=== PATIENT | female | born 1950 | race Caucasian/White ===

== ENCOUNTER 2018-06-26 06:18 | Day surgery (SDC) | payer MEDICARE, MEDICAID ==
[~2018-06-26] VITALS: Ht 160 cm; Wt 60.8 kg
[2018-06-26] VITALS (15 sets, daily range): BP systolic 98–159; BP diastolic 43–85
[~2018-06-26 06:18] MED LIST: ASPI81TA46 PO; CALC-499 PO; CHOL100046 PO; CLOP75TA15 PO; DILT180C66 PO; ESOM40CA PO; EVOL140S SQ; FENO135C PO; HYDR25TA4 PO; LANTUS SUBCUT; LIDOcaine 1%/PF 5ML 10 MG/ML VIAL SQ ONE; METO50TA7 PO; OMEG1CAP46 PO; ROSU40TA PO; TRAN2TAB2 PO; VICTOZA SQ; [UNRECOGNIZED DRUG - CODE] TL
[2018-06-26] MEDS ORDERED: oxyCODONE IR 5mg (immed. release) tablet PO PRN (06:40)
[2018-06-26] MEDS ORDERED: normal saline 1000ml 1,000 ML IV PRN (06:40)
[2018-06-26] MEDS ORDERED: INSU100V13 SQ (07:14)
[2018-06-26 07:27] LABS: BASOPHILS # (AUTO) 0.1 X10'3 (0-0.2); BASOPHILS % (AUTO) 0.8 % (0-1); EOSINOPHILS # (AUTO) 0.2 X10'3 (0-0.9); EOSINOPHILS % (AUTO) 1.7 % (0-6); HEMATOCRIT 44.2 % (35.0-45.0); HEMOGLOBIN 14.9 g/dl (12.0-16.0); LYMPHOCYTES # (AUTO) 2.5 X10'3 (1.1-4.8); LYMPHOCYTES % (AUTO) 24.9 % (21-51); MEAN CORPUSCULAR HEMOGLOBIN 30.2 PG (27.0-31.0); MEAN CORPUSCULAR HGB CONC 33.8 % (33.0-36.5); MEAN CORPUSCULAR VOLUME 89.3 FL (78-98); MEAN PLATELET VOLUME 9.8 FL (7.4-10.4); MONOCYTES # (AUTO) 0.7 X10'3 (0-0.9); NEUTROPHILS # (AUTO) 6.6 X10'3 (1.8-7.7); NEUTROPHILS % (AUTO) 65.6 % (42-75); PLATELET COUNT 265 X10'3 (140-440); RED BLOOD COUNT 4.94 X10'6 (4.20-5.60); RED CELL DISTRIBUTION WIDTH 14.5 % (11.5-14.5); WHITE BLOOD COUNT 10.1 X10'3 (4.5-11.0)
[2018-06-26 07:34] LABS: ALBUMIN 4.6 G/DL (3.4-5.0); ANION GAP 14 (8-16); BLOOD UREA NITROGEN 26 MG/DL (7-18); BUN/CREATININE RATIO 22.8 (6.6-38.0); CHLORIDE 100 MMOL/L (99-107); CREATININE 1.14 MG/DL (0.40-0.90); GLUCOSE 299 MG/DL (70-104); POTASSIUM 4.3 MMOL/L (3.5-5.1); PROTHROMBIN TIME 10.7 SECONDS (9.0-12.0); SODIUM 138 MMOL/L (135-145); TOTAL CARBON DIOXIDE 24.3 MMOL/L (24-32); eGFR 47 ML/MIN
[2018-06-26] MEDS ORDERED: MIDAZolam 1mg/ml 10ml vial IV ONE (07:55)
[2018-06-26] MEDS ORDERED: fentaNYL/PF 50MCG/1 ML 2ML syringe IV ONE (07:55)
[2018-06-26] MEDS ORDERED: normal saline 1000ml 1,000 ML IV SCH (08:14)
== END 2018-06-26 12:15 | disposition home or self-care (01) ==
LOC: SSTAY O 06:18
PROVIDERS: ATTEND Radiology Diagnostic Radiology
DX: R74.8 Abnormal levels of other serum enzymes (principal); E11.22 Type 2 diabetes mellitus with diabetic chronic kidney disease; I12.9 Hypertensive chronic kidney disease with stage 1 through stage 4 chronic kidney disease, or unspecified chronic kidney disease; N18.9 Chronic kidney disease, unspecified; I25.10 Atherosclerotic heart disease of native coronary artery without angina pectoris; E78.00 Pure hypercholesterolemia, unspecified; I49.8 Other specified cardiac arrhythmias; I65.23 Occlusion and stenosis of bilateral carotid arteries; M81.0 Age-related osteoporosis without current pathological fracture; Z87.891 Personal history of nicotine dependence; Z90.710 Acquired absence of both cervix and uterus; Z85.09 Personal history of malignant neoplasm of other digestive organs; Z90.722 Acquired absence of ovaries, bilateral; Z86.73 Personal history of transient ischemic attack (TIA), and cerebral infarction without residual deficits; Z88.2 Allergy status to sulfonamides; Z88.5 Allergy status to narcotic agent; Z88.1 Allergy status to other antibiotic agents; Z79.4 Long term (current) use of insulin; Z79.01 Long term (current) use of anticoagulants; Z79.82 Long term (current) use of aspirin; Z79.891 Long term (current) use of opiate analgesic; Z95.5 Presence of coronary angioplasty implant and graft; Z93.3 Colostomy status; Z90.49 Acquired absence of other specified parts of digestive tract; Z90.89 Acquired absence of other organs; Z95.828 Presence of other vascular implants and grafts; Z86.74 Personal history of sudden cardiac arrest; Z86.718 Personal history of other venous thrombosis and embolism; Z98.890 Other specified postprocedural states; Z88.8 Allergy status to other drugs, medicaments and biological substances; Z79.899 Other long term (current) drug therapy; Z82.49 Family history of ischemic heart disease and other diseases of the circulatory system; Z83.3 Family history of diabetes mellitus
CPT/HCPCS: 36415; 47000; 76942; 80048; 82948; 85025; 85610; J2001; J2250; J3010; J7030

== ENCOUNTER 2019-05-23 08:15 | Emergency (ER) | payer MEDICARE, MEDICAID ==
[~2019-05-23] VITALS: Ht 162.6 cm; Wt 65.0 kg
[~2019-05-23 08:15] MED LIST changes: +ASPI81TA44 PO; -ASPI81TA46 PO; +INSU100V13 SQ; -LIDOcaine 1%/PF 5ML 10 MG/ML VIAL SQ ONE
[2019-05-23] MEDS ORDERED: proCHLORperazine 10 MG/2 ml inj IV ONE (08:55)
--- NOTE | 2019-05-23 08:55 | NUR ---
urine requested, states just went before got here. water given.
[2019-05-23] MEDS ORDERED: LIDOcaine Viscous 15ml cup MM PRN (09:00)
[2019-05-23] MEDS ORDERED: mag hydrox/Alum hydrox/simeth 30ml oral suspension PO ONE (09:00)
[2019-05-23 09:20] LABS: BASOPHILS # (AUTO) 0.1 X10'3 (0-0.2); EOSINOPHILS # (AUTO) 0.1 X10'3 (0-0.9); EOSINOPHILS % (AUTO) 0.7 % (0-6); HEMATOCRIT 37.2 % (35.0-45.0); HEMOGLOBIN 12.3 g/dl (12.0-16.0); LYMPHOCYTES # (AUTO) 2.2 X10'3 (1.1-4.8); LYMPHOCYTES % (AUTO) 25.2 % (21-51); MEAN CORPUSCULAR HEMOGLOBIN 28.1 PG (27.0-31.0); MEAN CORPUSCULAR HGB CONC 33.1 g/dL (33.0-36.5); MONOCYTES # (AUTO) 0.5 X10'3 (0-0.9); MONOCYTES % (AUTO) 6.2 % (2-12); NEUTROPHILS # (AUTO) 5.7 X10'3 (1.8-7.7); NEUTROPHILS % (AUTO) 66.9 % (42-75); PLATELET COUNT 262 X10'3 (140-440); RED BLOOD COUNT 4.37 X10'6 (4.20-5.60); RED CELL DISTRIBUTION WIDTH 17.5 % (11.5-14.5); WHITE BLOOD COUNT 8.6 X10'3 (4.5-11.0)
[2019-05-23 09:34] LABS: ALANINE AMINOTRANSFERASE 57 U/L (12-78); ALBUMIN 3.7 G/DL (3.4-5.0); ALBUMIN/GLOBULIN RATIO 1.1 (1.1-1.5); ALKALINE PHOSPHATASE 65 IU/L (46-116); ANION GAP 8 (8-16); ASPARTATE AMINO TRANSFERASE 43 U/L (10-37); BILIRUBIN,TOTAL 0.6 MG/DL (0.1-1.0); BLOOD UREA NITROGEN 24 MG/DL (7-18); CALCIUM 8.6 MG/DL (8.5-10.1); CHLORIDE 109 MMOL/L (99-107); GLUCOSE 173 MG/DL (70-104); LIPASE 266 U/L (73-393); POTASSIUM 4.7 MMOL/L (3.5-5.1); SODIUM 141 MMOL/L (135-145); TOTAL CARBON DIOXIDE 23.6 MMOL/L (24-32); TOTAL PROTEIN 7.1 G/DL (6.4-8.2); eGFR 55 ML/MIN
--- NOTE | 2019-05-23 09:56 | NUR ---
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
--- NOTE | 2019-05-23 09:57 | NUR ---
patient unable to void, straight cathed using sterile technique
[2019-05-23 10:15] VITALS: BP 101/57
[2019-05-23 10:16] LABS: CLARITY,URINE CLEAR (Clear); COLOR,URINE STRAW (Yellow); GLUCOSE, URINE NEGATIVE (Neg); KETONES,URINE NEGATIVE (Neg); LEUKOCYTE ESTERASE ,URINE NEGATIVE (Neg); NITRITES, URINE NEGATIVE (Neg); OCCULT BLOOD,URINE NEGATIVE (Neg); PH,URINE 5.5 (4.8-8.0); PROTEIN,URINE NEGATIVE (Neg); UROBILINOGEN,URINE 0.2 E.U/dL (0.2-1.0)
[2019-05-23 10:20] LABS: URINE AMPHETAMINE SCREEN NEGATIVE (Neg); URINE BARBITUATE SCREEN NEGATIVE (Neg); URINE BENZODIAZEPINES SCREEN NEGATIVE (Neg); URINE CANNABINOID SCREEN POSITIVE (Neg); URINE COCAINE SCREEN NEGATIVE (Neg); URINE METHADONE SCREEN NEGATIVE (Neg); URINE OPIATE SCREEN NEGATIVE (Neg); URINE PHENCYCLIDINE SCREEN NEGATIVE (Neg)
[2019-05-23 10:23] LABS: UA COLLECTION TYPE STRAIGHT CATH
[2019-05-23] MEDS ORDERED: ONDA4TAB6 PO (11:53)
== END 2019-05-23 12:08 | disposition home or self-care (01) ==
LOC: ER 08:16
DX: N20.0 Calculus of kidney (principal); I10 Essential (primary) hypertension; E11.9 Type 2 diabetes mellitus without complications; M81.0 Age-related osteoporosis without current pathological fracture; Z98.61 Coronary angioplasty status; Z90.49 Acquired absence of other specified parts of digestive tract; Z90.710 Acquired absence of both cervix and uterus; Z98.890 Other specified postprocedural states; Z88.2 Allergy status to sulfonamides; Z86.73 Personal history of transient ischemic attack (TIA), and cerebral infarction without residual deficits; Z88.5 Allergy status to narcotic agent; Z88.8 Allergy status to other drugs, medicaments and biological substances; Z79.82 Long term (current) use of aspirin; Z79.4 Long term (current) use of insulin; Z79.899 Other long term (current) drug therapy
CPT/HCPCS: 36415; 74176; 80053; 80305; 81003; 83690; 84484; 85025; 96374; 99284; J0780; P9612

== ENCOUNTER 2019-11-08 09:43 | Emergency (ER) | payer MEDICARE, MEDICAID ==
[~2019-11-08] VITALS: Ht 160 cm; Wt 55.9 kg
[~2019-11-08 09:43] MED LIST changes: -EVOL140S SQ; +EVOL140S2 SQ; +ONDA4TAB6 PO
[2019-11-08 11:06] VITALS: BP 114/57
== END 2019-11-08 11:08 | disposition home or self-care (01) ==
LOC: ER 09:45
DX: S80.02XA Contusion of left knee, initial encounter (principal); I10 Essential (primary) hypertension; I25.2 Old myocardial infarction; E11.42 Type 2 diabetes mellitus with diabetic polyneuropathy; M81.0 Age-related osteoporosis without current pathological fracture; Z86.2 Personal history of diseases of the blood and blood-forming organs and certain disorders involving the immune mechanism; Z86.73 Personal history of transient ischemic attack (TIA), and cerebral infarction without residual deficits; Z95.5 Presence of coronary angioplasty implant and graft; Z90.49 Acquired absence of other specified parts of digestive tract; Z90.710 Acquired absence of both cervix and uterus; Z90.89 Acquired absence of other organs; Z98.890 Other specified postprocedural states; Z88.2 Allergy status to sulfonamides; Z88.5 Allergy status to narcotic agent; Z88.8 Allergy status to other drugs, medicaments and biological substances; Z79.82 Long term (current) use of aspirin; Z79.4 Long term (current) use of insulin; Z79.899 Other long term (current) drug therapy; W18.39XA Other fall on same level, initial encounter; Y93.89 Activity, other specified; Y92.89 Other specified places as the place of occurrence of the external cause; Y99.8 Other external cause status
CPT/HCPCS: 73564; 73590; 99284

== ENCOUNTER 2020-05-01 06:29 | Day surgery (SDC) | payer MEDICARE, MEDICAID ==
[2020-04-20 16:49] LABS: CLARITY,URINE CLOUDY (Clear); COLOR,URINE YELLOW (Yellow); GLUCOSE, URINE NEGATIVE (Neg); KETONES,URINE NEGATIVE (Neg); LEUKOCYTE ESTERASE ,URINE SMALL (Neg); NITRITES, URINE NEGATIVE (Neg); OCCULT BLOOD,URINE NEGATIVE (Neg); PH,URINE 5.5 (4.8-8.0); PROTEIN,URINE 100 mg/dl (Neg); UROBILINOGEN,URINE 0.2 E.U/dL (0.2-1.0)
[2020-04-20 16:51] LABS: BASOPHILS # (AUTO) 0.1 X10'3 (0-0.2); BASOPHILS % (AUTO) 0.7 % (0-1); EOSINOPHILS # (AUTO) 0.1 X10'3 (0-0.9); EOSINOPHILS % (AUTO) 1.2 % (0-6); LYMPHOCYTES # (AUTO) 2.8 X10'3 (1.1-4.8); LYMPHOCYTES % (AUTO) 29.5 % (21-51); MEAN CORPUSCULAR HEMOGLOBIN 29.8 PG (27.0-31.0); MEAN CORPUSCULAR HGB CONC 33.2 g/dL (33.0-36.5); MEAN CORPUSCULAR VOLUME 89.7 FL (78-98); MEAN PLATELET VOLUME 9.4 FL (7.4-10.4); MONOCYTES # (AUTO) 0.6 X10'3 (0-0.9); MONOCYTES % (AUTO) 6.4 % (2-12); NEUTROPHILS % (AUTO) 62.2 % (42-75); PRE OP HEMATOCRIT 39.7 % (35.0-45.0); PRE OP HEMOGLOBIN 13.2 g/dL (12.0-16.0); PRE OP PLATELET COUNT 259 X10'3 (140-440); RED BLOOD COUNT 4.43 X10'6 (4.20-5.60); RED CELL DISTRIBUTION WIDTH 16.5 % (11.5-14.5)
[2020-04-20 16:54] LABS: SQUAMOUS EPITHELIAL CELL,UR MANY /LPF (FEW); UA COLLECTION TYPE CLN CATCH MIDSTREAM
[2020-04-20 16:55] LABS: BACTERIA,URINE 3+ /HPF (Neg); WBC CLUMPS,URINE MODERATE /HPF (NEGATIVE); WBC,URINE TNTC /HPF (0-4)
[2020-04-20 16:56] LABS: RBC,URINE 0-2 /HPF (0-2)
[2020-04-20 17:06] LABS: ALBUMIN 3.7 G/DL (3.4-5.0); ALBUMIN/GLOBULIN RATIO 1.1 (1.1-1.5); ALKALINE PHOSPHATASE 80 IU/L (46-116); BLOOD UREA NITROGEN 31 MG/DL (7-18); BUN/CREATININE RATIO 26.7 (6.6-38.0); CALCIUM 9.2 MG/DL (8.5-10.1); CHLORIDE 108 MMOL/L (99-107); CREATININE 1.16 MG/DL (0.40-0.90); PRE OP ALT 61 U/L (30-65); PRE OP ANION GAP 8 (8-16); PRE OP AST 57 U/L (10-37); PRE OP BILIRUB, TOTAL 0.6 MG/DL (0.0-1.0); PRE OP POTASSIUM 4.3 MMOL/L (3.4-5.1); PRE OP SODIUM 143 MMOL/L (135-145); TOTAL CARBON DIOXIDE 26.7 MMOL/L (24-32); TOTAL PROTEIN 7.1 G/DL (6.4-8.2); eGFR 46 ML/MIN
[2020-04-20 17:07] LABS: PRE OP GLUCOSE 297 MG/DL (70-104)
[2020-04-20 17:28] LABS: PRE OP PROTIME 10.7 SECONDS (9.0-12.0)
[2020-05-01] VITALS (11 sets, daily range): BP systolic 105–175; BP diastolic 58–85
[~2020-05-01] VITALS: Ht 162.6 cm; Wt 55.0 kg
[~2020-05-01 06:29] MED LIST changes: +DOCUMENT DATE & TIME OF BETA-BLOCKER PO ONE; -ONDA4TAB6 PO; +famotidine 20mg tablet PO ONE; +ringers solution, lacted 1,000 ML IV SCH
[2020-05-01] MEDS ORDERED: cefazolin/dext.iso 2gm/50ml 50 ML IV ONE (07:15)
[2020-05-01] MEDS ORDERED: proCHLORperazine 10 MG/2 ml inj IV PRN (08:40)
[2020-05-01] MEDS ORDERED: morphine 2 MG/ML inj. syringe IV PRN (08:40)
[2020-05-01] MEDS ORDERED: ringers solution, lacted 1,000 ML IV SCH (08:40)
[2020-05-01] MEDS ORDERED: meperidine/PF 25mg/ml syringe IV PRN ×3 (08:40)
[2020-05-01] MEDS ORDERED: morphine 4 MG/ML inj SYRINge IV PRN (08:40)
[2020-05-01] MEDS ORDERED: ondansetron/PF 4mg/2ml inj IV PRN (08:40)
[2020-05-01] MEDS ORDERED: insulin regular, human 10 units/0.1 ml syringe SQ ONE (08:45)
[2020-05-01] MEDS ORDERED: insulin regular, human U-100 3ml vial - multi-dose SQ ONE (08:55)
[2020-05-01] MEDS ORDERED: bacitracin 15gm ointment TP ONE (09:39)
[2020-05-01] MEDS ORDERED: BUPIVAcaine/PF 2.5 mg/ml (0.25%) 30ml vial ONE (09:39)
[2020-05-01] MEDS ORDERED: aprepitant 40mg capsule PO ONE (09:40)
[2020-05-01] MEDS ORDERED: fentaNYL/PF 50MCG/1 ML 2ML syringe ONE (10:21)
[2020-05-01] MEDS ORDERED: midazolam 2 mg/2 ml injection ONE (10:21)
[2020-05-01] MEDS ORDERED: LIDOcaine 1%/PF 5ML 10 MG/ML VIAL ONE (10:22)
[2020-05-01] MEDS ORDERED: desflurane 240ml liquid inh. IH ONE (10:22)
[2020-05-01] MEDS ORDERED: dexamethasone sod phosphate 10mg/ml inj ONE (10:22)
[2020-05-01] MEDS ORDERED: ROPIVAcaine 0.5% (5mg/ml) 30ml vial ONE (10:23)
[2020-05-01] MEDS ORDERED: propofol inj 20 ML IV ONE (10:23)
[2020-05-01] MEDS ORDERED: ondansetron/PF 4mg/2ml inj ONE (10:51)
[2020-05-01] MEDS ORDERED: BUPIVAcaine/PF 2.5 mg/ml (0.25%) 30ml vial IJ ONE (11:20)
[2020-05-01] MEDS ORDERED: bacitracin/polymyxin B 15 GM ointment TP ONE (11:21)
--- NOTE | 2020-05-01 12:01 | NUR ---
Received from OR via cathleen, accompanied by Anesthesiologist Trip and report given by Anesthesiolgist. Pt VS WNL and mask to 10L sats 98%. 20G left forearm LR IVF at 100cc/hr. Pt has left foot elevated with wrap and boot in place. Pt sleepy but responsive to questions, ice pace provided, will monitor closely.
[2020-05-01] MEDS ORDERED: metoprolol tartrate 50mg tablet PO ONE (12:40)
[2020-05-01] MEDS ORDERED: metoprolol succinate 25mg (24-HOUR) SR. Tablet PO ONE (12:45)
--- NOTE | 2020-05-01 12:45 | NUR ---
Spoke with Dr Chavis r/t slowly trending up BP 175/65 currently. He states patient takes metoprolol at home during lunch time usually so to order a dose and give now.
--- NOTE | 2020-05-01 13:41 | NUR ---
Pt discharged to vehicle without incident by wheelchair. Prior to leaving pt's ostomy was emptied, pt ambulated partial weight bearing, tolerated PO fluids. Pt verbalized understanding of all DC instructions. pT HAS PAIN MEDS ALREADY FILLED AT HOME. VERY MINIMAL SANGUINOUS OOZING AFTER STANDING FROM BIG TOE AREA, REINFORCED WITH GAUZE AND MORE GAUZE SENT HOME WITH PATIENT. All DC instructions then reiterated to at vehicle upon crop picker.
== END 2020-05-01 13:41 | disposition home or self-care (01) ==
LOC: PAS 06:29
PROVIDERS: ATTEND Podiatrist Foot & Ankle Surgery
DX: M20.12 Hallux valgus (acquired), left foot (principal); M20.22 Hallux rigidus, left foot; M19.072 Primary osteoarthritis, left ankle and foot; I10 Essential (primary) hypertension; E11.40 Type 2 diabetes mellitus with diabetic neuropathy, unspecified; G89.18 Other acute postprocedural pain; I25.10 Atherosclerotic heart disease of native coronary artery without angina pectoris; I25.2 Old myocardial infarction; I65.23 Occlusion and stenosis of bilateral carotid arteries; E78.49 Other hyperlipidemia; Z88.8 Allergy status to other drugs, medicaments and biological substances; Z88.5 Allergy status to narcotic agent; Z88.2 Allergy status to sulfonamides; Z87.891 Personal history of nicotine dependence; Z11.59 Encounter for screening for other viral diseases; Z79.899 Other long term (current) drug therapy; Z79.01 Long term (current) use of anticoagulants; Z98.890 Other specified postprocedural states; Z79.82 Long term (current) use of aspirin; Z79.4 Long term (current) use of insulin; Z86.73 Personal history of transient ischemic attack (TIA), and cerebral infarction without residual deficits; Z86.718 Personal history of other venous thrombosis and embolism; Z93.3 Colostomy status; Z90.49 Acquired absence of other specified parts of digestive tract; Z83.3 Family history of diabetes mellitus
CPT/HCPCS: 28750; 36415; 64447; 64450; 73620; 76000; 80053; 81001; 82948; 85025; 85610; 85730; A6223; C1713; J1100; J1815; J2250; J2405; J2704; J3010; J3490; J8501; U0003; A4618; A6449; A7000; J2795; J7120